=== PATIENT | female | born 1980 | race Caucasian/White ===

== ENCOUNTER 2019-10-16 | Emergency (ER) | payer BC ==
[~2019-10-16] MED LIST: MIRCETTE28 DAY PO
[2019-10-16 19:01] LABS: HEMATOCRIT 40.4 % (37.0-47.0); HEMOGLOBIN 13.9 g/dl (12.0-16.0); IMMATURE GRANULOCYTES 0.6 % (0.0-5.0); MEAN CELL VOLUME 85.2 fL CALC (80.0-100.0); MEAN CORPUSCULAR HGB 29.3 pG CALC (26.0-32.0); MEAN CORPUSCULAR HGB CONC 34.4 g/dL CAL (32.0-36.0); NEUT# 12.57 thou/uL (2.00-7.15); RED BLOOD COUNT 4.74 mill/uL (4.20-5.60); RED CELL DISTRI WIDTH 12.7 % (11.5-15.5)
[2019-10-16 19:13] LABS: ALBUMIN 4.3 g/dL (3.2-5.0); ALKALINE PHOSPHATASE 74 u/l (38-126); AMYLASE 85 u/l (30-110); ANION GAP 12 (6-22 (CALC)); BILIRUBIN, TOTAL 0.4 mg/dL (0.0-1.4); BUN 11 mg/dL (7-17); BUN/CREATININE RATIO 14 (12-20 (CALC)); CARBON DIOXIDE 22 mmol/l (22-30); CHLORIDE 104 mmol/l (95-108); CREATININE 0.8 mg/dL (0.5-1.0); GFR > 60 ML/MIN (>=60 (CALC)); GFR FOR AFR.AMER. > 60 ML/MIN (>=60 (CALC)); LIPASE 35 u/l (23-300); POTASSIUM 3.5 mmol/l (3.5-5.1); SGOT/AST 23 u/l (14-36); SODIUM 134 mmol/l (137-146); TOTAL PROTEIN 7.5 g/dL (6.3-8.2)
[2019-10-16] MEDS ORDERED: TRAMADOL HCL50 MG PO (20:39)
[2019-10-16] MEDS ORDERED: PHENERGAN25 MG/TAB PO (20:39)
[2019-10-16] MEDS ORDERED: NAPROXEN500 MG PO (20:39)
== END 2019-10-16 21:10 | disposition home or self-care (01) | DRG 779 ==
DX: O03.9 Complete or unspecified spontaneous abortion without complication (principal)